=== PATIENT | male | born 1990 ===

== ENCOUNTER 2017-04-23 20:55 | Emergency (ER) | payer MEDICARE, OTHER ==
[~2017-04-23] VITALS: Ht 180.3 cm; Wt 93.9 kg
[~2017-04-23 20:55] MED LIST: ABILIFY MAINTE400 M1 IM
== END 2017-04-23 22:50 | disposition left against medical advice (07) ==
LOC: ER 20:55
DX: Z53.21 Procedure and treatment not carried out due to patient leaving prior to being seen by health care provider (principal)